=== PATIENT | female | born 1990 | race Caucasian/White ===

== ENCOUNTER 2016-08-07 14:59 | Emergency (ER) | payer BC, MEDICAID, OTHER | END 2016-08-07 16:27 | disposition home or self-care (01) | DX: J03.90 Acute tonsillitis, unspecified (principal); K13.0 Diseases of lips; F17.200 Nicotine dependence, unspecified, uncomplicated ==

== ENCOUNTER 2018-05-05 15:38 | Outpatient (CLI) | payer MEDICAID ==
[2018-05-06 14:37] LABS: MUDS CUTOFF CONCENTRATIONS CUTOFF CONC BELOW:
[2018-05-06 15:52] LABS: AMPHETAMINE SCREEN,URINE NEGATIVE (NEGATIVE); BENZODIAZEPINES SCREEN, URINE NEGATIVE (NEGATIVE); COCAINE SCREEN URINE NEGATIVE (NEGATIVE); METHADONE SCREEN, URINE NEGATIVE (NEGATIVE); METHAMPHETAMINES SCREEN, URINE NEGATIVE (NEGATIVE); OPIATE SCREEN, URINE NEGATIVE (NEGATIVE); OXYCODONE SCREEN, URINE NEGATIVE (NEGATIVE); PROPOXYPHENE SCREEN, URINE NEGATIVE (NEGATIVE); TRICYCLIC ANTIDEPRESSANT,URINE NEGATIVE (NEGATIVE)
== END 2018-05-05 15:39 | disposition home or self-care (01) ==
LOC: LAB.R 15:38
PROVIDERS: ATTEND Nurse Practitioner Obstetrics & Gynecology
DX: Z36.9 Encounter for antenatal screening, unspecified (principal)
CPT/HCPCS: 80306

== ENCOUNTER 2018-05-05 15:45 | Outpatient (CLI) | payer MEDICAID ==
[2018-05-05 16:02] LABS: BASOPHILS # (AUTO) 0.1 10^3/uL (0.0-0.1); BASOPHILS % (AUTO) 0.7 %; EOSINOPHILS # (AUTO) 0.2 10^3/uL (0.0-0.7); HGB - HEMOGLOBIN 13.7 g/dL (12.0-16.0); LYMPHOCYTES # (AUTO) 2.3 10^3/uL (1.5-3.5); LYMPHOCYTES % (AUTO) 12.6 %; MEAN CORPUSCULAR HEMOGLOBIN 31.6 pg (27.0-31.0); MEAN CORPUSCULAR HGB CONC 35.1 g/dL (32.0-36.0); MEAN PLATELET VOLUME 6.9 fL (7.9-10.8); MONOCYTES # (AUTO) 0.8 10^3/uL (0.0-1.0); MONOCYTES % (AUTO) 4.4 %; NEUTROPHILS # (AUTO) 15.1 10^3/uL (1.5-6.6); NEUTROPHILS % (AUTO) 81.3 %; PLT - PLATELET COUNT 421 10^3/uL (130-450); RED BLOOD COUNT 4.33 10^6/uL (4.20-5.40); RED CELL DISTRIBUTION WIDTH 13.3 % (12.0-15.0); WHITE BLOOD COUNT 18.5 x10^3/uL (4.8-10.8)
[2018-05-05 16:31] LABS: HEMOGLOBIN A1C 0.4 g/dL; HEMOGLOBIN A1C % 4.6 % (4.6-6.2)
[2018-05-05 16:40] LABS: BILIRUBIN,URINE NEGATIVE (NEGATIVE); GLUCOSE, URINE (UA) NEGATIVE (NEGATIVE); KETONES,URINE (UA) 15 mg/dL (NEGATIVE); LEUKOCYTE ESTERASE, URINE NEGATIVE (NEGATIVE); NITRITE,URINE NEGATIVE (NEGATIVE); OCCULT BLOOD,URINE NEGATIVE (NEGATIVE); PROTEIN,URINE NEGATIVE (NEGATIVE); UROBILINOGEN,URINE 0.2 (NORMAL) E.U./dL (NORMAL)
[2018-05-05 16:48] LABS: BACTERIA,URINE Rare /HPF (None Seen); CLARITY,URINE CLEAR (CLEAR); RBC,URINE None Seen /HPF (0-5); SQUAMOUS EPITHELIAL CELL,UR MANY Squamous (<= Few)
[2018-05-06 13:01] LABS: HEPATITIS B SURFACE ANTIGEN NON-REACTIVE (NON-REACTIVE); HEPATITIS C ANTIBODY NON-REACTIVE (NON-REACTIVE)
[2018-05-06 14:22] LABS: HIV AG/AB 4TH GEN NON-REACTIVE (NON-REACTIVE)
== END 2018-05-05 15:46 | disposition home or self-care (01) ==
LOC: LAB 15:45
PROVIDERS: ATTEND Nurse Practitioner Obstetrics & Gynecology
DX: Z36.9 Encounter for antenatal screening, unspecified (principal)
CPT/HCPCS: 36415; 80306; 81001; 81599; 83036; 85025; 86592; 86762; 86803; 86850; 86900; 86901; 87340; 87389

== ENCOUNTER 2018-06-03 15:45 | Outpatient (CLI) | payer MEDICAID ==
[2018-06-03 18:52] LABS: MUDS CUTOFF CONCENTRATIONS CUTOFF CONC BELOW:
[2018-06-03 19:41] LABS: AMPHETAMINE SCREEN,URINE NEGATIVE (NEGATIVE); BENZODIAZEPINES SCREEN, URINE NEGATIVE (NEGATIVE); COCAINE SCREEN URINE NEGATIVE (NEGATIVE); METHADONE SCREEN, URINE NEGATIVE (NEGATIVE); METHAMPHETAMINES SCREEN, URINE NEGATIVE (NEGATIVE); OPIATE SCREEN, URINE NEGATIVE (NEGATIVE); OXYCODONE SCREEN, URINE NEGATIVE (NEGATIVE); PROPOXYPHENE SCREEN, URINE NEGATIVE (NEGATIVE); TRICYCLIC ANTIDEPRESSANT,URINE NEGATIVE (NEGATIVE)
== END 2018-06-03 23:59 | disposition home or self-care (01) ==
LOC: LAB.R 15:45
PROVIDERS: ATTEND Registered Nurse
DX: R03.0 Elevated blood-pressure reading, without diagnosis of hypertension (principal)
CPT/HCPCS: 80306

== ENCOUNTER 2018-06-12 11:44 | Outpatient (CLI) | payer MEDICAID ==
[2018-06-12 13:02] LABS: BILIRUBIN,URINE NEGATIVE (NEGATIVE); GLUCOSE, URINE (UA) NEGATIVE (NEGATIVE); KETONES,URINE (UA) NEGATIVE (NEGATIVE); LEUKOCYTE ESTERASE, URINE NEGATIVE (NEGATIVE); NITRITE,URINE NEGATIVE (NEGATIVE); OCCULT BLOOD,URINE NEGATIVE (NEGATIVE); PH,URINE 6.5 PH (5.0-7.5); PROTEIN,URINE NEGATIVE (NEGATIVE); UROBILINOGEN,URINE 0.2 (NORMAL) E.U./dL (NORMAL)
[2018-06-12 13:08] LABS: CLARITY,URINE CLEAR (CLEAR)
[2018-06-12 13:24] LABS: HGB - HEMOGLOBIN 12.2 g/dL (12.0-16.0); MEAN CORPUSCULAR HEMOGLOBIN 31.3 pg (27.0-31.0); MEAN CORPUSCULAR HGB CONC 34.7 g/dL (32.0-36.0); MEAN CORPUSCULAR VOLUME 90.2 fL (81.0-99.0); MEAN PLATELET VOLUME 7.2 fL (7.9-10.8); RED BLOOD COUNT 3.91 10^6/uL (4.20-5.40); RED CELL DISTRIBUTION WIDTH 13.3 % (12.0-15.0)
[2018-06-12 13:40] LABS: CREATININE 0.6 mg/dL (0.4-1.0); URIC ACID 5.1 mg/dL (2.6-7.2)
== END 2018-06-12 11:45 | disposition home or self-care (01) ==
LOC: LAB 11:44
PROVIDERS: ATTEND Registered Nurse
DX: O16.9 Unspecified maternal hypertension, unspecified trimester (principal); O99.210 Obesity complicating pregnancy, unspecified trimester; Z33.1 Pregnant state, incidental
CPT/HCPCS: 36415; 81001; 81003; 81599; 82565; 82677; 82950; 83615; 84163; 84450; 84550; 84702; 85027; 86336; 87086

== ENCOUNTER 2018-07-02 12:56 | Outpatient (CLI) | payer MEDICAID ==
--- NOTE | 2018-07-02 16:15 | Ultrasound Report ---
Reason: Procedure Date: 07/02/2018 Accession Number: [id number] / [id number] Procedure: US - OB Detailed Eval CPT Code: FULL RESULT: EXAM: COMPLETE OBSTETRICAL ULTRASOUND EXAM DATE: 07/02/2018 03:13 PM. CLINICAL HISTORY: anatomic survey. COMPARISON: None. TECHNIQUE: Real-time sonographic evaluation of the fetus performed by the pomologist. Multiple customer response representative static images were saved for review. DATING: Established EGA 21 weeks 1 day with BRIANDA 11/11/2018 based on obstetric provider information. EGA 21 weeks 1 day with BRIANDA 11/11/2018 based on the current ultrasound. GENERAL EVALUATION Mathew . Cardiac activity: 147 bpm. movement: Visualized. Presentation: Cephalic. Placenta: Anterior position. No evidence for previa. Umbilical cord: 3 vessel cord. Central placental cord origin. Amniotic fluid: 14.6 MVP 6.7 cm. BIOMETRY Bi-Parietal Diameter (BPD): 5.1 cm, 21 weeks 2 days Head Circumference (HC): 19.2 cm, 21 weeks 2 days Abdominal Circumference (AC): 16.2 cm, 21 weeks 2 days Femur Length (FL): 3.5 cm, 21 weeks 1 day Estimated Weight: 411 grams, which is around the 50th percentile. ANATOMY The intracranial structures, profile, face/nose/lips, spine, 4 chamber heart and outflow tracts, stomach, abdominal wall and cord insertion, diaphragm, kidneys, bladder, and extremities were visualized and demonstrate no abnormality. MATERNAL STRUCTURES Uterus: Unremarkable. Cervix: Long and closed. Transabdominal length 4.4 cm. Right ovary/adnexa: Unremarkable. Left ovary/adnexa: Unremarkable. Free fluid: None. IMPRESSION: 1. Mathew live intrauterine with gestational age 21 weeks 1 day based on referring provider information. 2. Estimated weight is within expected limits for assigned dating. 3. Normal anatomic survey. No anatomic abnormalities are detected at this time. RADIA
== END 2018-07-02 12:57 | disposition home or self-care (01) ==
LOC: DI 12:56
PROVIDERS: ATTEND Registered Nurse
DX: Z36.89 Encounter for other specified antenatal screening (principal); Z3A.21 21 weeks gestation of pregnancy
CPT/HCPCS: 76811

== ENCOUNTER 2018-08-04 10:49 | Outpatient (CLI) | payer MEDICAID ==
[2018-08-04 11:12] LABS: HGB - HEMOGLOBIN 12.9 g/dL (12.0-16.0); MEAN CORPUSCULAR HEMOGLOBIN 30.4 pg (27.0-31.0); MEAN CORPUSCULAR HGB CONC 33.9 g/dL (32.0-36.0); MEAN CORPUSCULAR VOLUME 89.6 fL (81.0-99.0); MEAN PLATELET VOLUME 7.3 fL (7.9-10.8); RED BLOOD COUNT 4.24 10^6/uL (4.20-5.40); RED CELL DISTRIBUTION WIDTH 13.6 % (12.0-15.0)
== END 2018-08-04 10:50 | disposition home or self-care (01) ==
LOC: LAB 10:49
PROVIDERS: ATTEND Nurse Practitioner Obstetrics & Gynecology
DX: Z36.89 Encounter for other specified antenatal screening (principal); O99.810 Abnormal glucose complicating pregnancy
CPT/HCPCS: 36415; 82951; 82952; 85027; 86850

== ENCOUNTER 2018-08-06 16:12 | Outpatient (CLI) | payer MEDICAID ==
[2018-08-06 14:40] LABS: CREATININE,URINE 86.7 mg/dL
== END 2018-08-06 23:59 | disposition home or self-care (01) ==
LOC: LAB.R 16:12
PROVIDERS: ATTEND Registered Nurse
DX: O99.210 Obesity complicating pregnancy, unspecified trimester (principal); R03.0 Elevated blood-pressure reading, without diagnosis of hypertension
CPT/HCPCS: 82570; 84156

== ENCOUNTER 2018-08-28 09:56 | Outpatient (CLI) | payer MEDICAID | END 2018-08-28 09:57 | disposition home or self-care (01) | LOC: NS 09:56 | PROVIDERS: ATTEND Nurse Practitioner Obstetrics & Gynecology | DX: Z71.3 Dietary counseling and surveillance (principal); O24.410 Gestational diabetes mellitus in pregnancy, diet controlled | CPT/HCPCS: 97802 ==

== ENCOUNTER 2018-09-10 15:59 | Outpatient (CLI) | payer MEDICAID ==
[2018-09-10 16:36] LABS: CREATININE,URINE 106.4 mg/dL; PROTEIN/CREATININE RATIO,URINE 0.1 (<=0.2)
[2018-09-10 16:42] LABS: CREATININE 0.6 mg/dL (0.4-1.0); URIC ACID 5.4 mg/dL (2.6-7.2)
== END 2018-09-10 16:00 | disposition home or self-care (01) ==
LOC: LAB 15:59
PROVIDERS: ATTEND Obstetrics & Gynecology
DX: Z36.89 Encounter for other specified antenatal screening (principal)
CPT/HCPCS: 36415; 82565; 82570; 83615; 84156; 84450; 84550

== ENCOUNTER 2018-09-15 16:18 | Observation (INO) | payer MEDICAID ==
[2018-09-15 17:10] LABS: BASOPHILS # (AUTO) 0.1 10^3/uL (0.0-0.1); BASOPHILS % (AUTO) 0.6 %; EOSINOPHILS # (AUTO) 0.2 10^3/uL (0.0-0.7); EOSINOPHILS % (AUTO) 1.1 %; HGB - HEMOGLOBIN 13.2 g/dL (12.0-16.0); LYMPHOCYTES # (AUTO) 1.7 10^3/uL (1.5-3.5); LYMPHOCYTES % (AUTO) 11.5 %; MEAN CORPUSCULAR HEMOGLOBIN 29.9 pg (27.0-31.0); MEAN CORPUSCULAR HGB CONC 33.3 g/dL (32.0-36.0); MEAN CORPUSCULAR VOLUME 89.9 fL (81.0-99.0); MEAN PLATELET VOLUME 7.4 fL (7.9-10.8); MONOCYTES # (AUTO) 0.8 10^3/uL (0.0-1.0); MONOCYTES % (AUTO) 5.7 %; NEUTROPHILS % (AUTO) 81.1 %; PLT - PLATELET COUNT 337 10^3/uL (130-450); RED BLOOD COUNT 4.43 10^6/uL (4.20-5.40); RED CELL DISTRIBUTION WIDTH 14.3 % (12.0-15.0); WHITE BLOOD COUNT 14.8 x10^3/uL (4.8-10.8)
[2018-09-15] MEDS ORDERED: LABETALOL 100 MG TABLET PO ONE (17:20)
[2018-09-15 17:26] LABS: URIC ACID 5.7 mg/dL (2.6-7.2)
[2018-09-15 18:12] LABS: CREATININE,URINE 93.7 mg/dL; PROTEIN/CREATININE RATIO,URINE 0.2 (<=0.2)
[2018-09-15 18:26] LABS: CALCIUM 9.1 mg/dL (8.5-10.3); CREATININE 0.7 mg/dL (0.4-1.0)
[2018-09-15] MEDS ORDERED: BETAMETHASONE 30 MG/5 ML VIAL IM SCH (20:46)
[2018-09-15] MEDS: LABETALOL 100 MG TABLET PO SCH (21:38)
[2018-09-16] MEDS: LABETALOL 100 MG TABLET PO SCH ×3 (03:07→14:51)
[2018-09-16 07:24] LABS: BASOPHILS % (AUTO) 0.3 %; HGB - HEMOGLOBIN 13.5 g/dL (12.0-16.0); LYMPHOCYTES % (AUTO) 6.5 %; MEAN CORPUSCULAR HEMOGLOBIN 30.8 pg (27.0-31.0); MEAN CORPUSCULAR HGB CONC 34.2 g/dL (32.0-36.0); MEAN CORPUSCULAR VOLUME 90.1 fL (81.0-99.0); MEAN PLATELET VOLUME 7.6 fL (7.9-10.8); MONOCYTES # (AUTO) 0.3 10^3/uL (0.0-1.0); MONOCYTES % (AUTO) 1.6 %; NEUTROPHILS # (AUTO) 14.3 10^3/uL (1.5-6.6); NEUTROPHILS % (AUTO) 91.6 %; PLT - PLATELET COUNT 347 10^3/uL (130-450); RED BLOOD COUNT 4.38 10^6/uL (4.20-5.40); RED CELL DISTRIBUTION WIDTH 14.4 % (12.0-15.0); WHITE BLOOD COUNT 15.6 x10^3/uL (4.8-10.8)
[2018-09-16 07:33] LABS: ALBUMIN 3.2 g/dL (3.2-5.5); ALBUMIN/GLOBULIN RATIO 0.9 (1.0-2.2); BILIRUBIN,TOTAL 0.9 mg/dL (0.2-1.0); CALCIUM 9.5 mg/dL (8.5-10.3); CREATININE 0.6 mg/dL (0.4-1.0); TOTAL PROTEIN 6.9 g/dL (6.7-8.2); URIC ACID 5.9 mg/dL (2.6-7.2)
[2018-09-16 08:36] LABS: PROTEIN/CREATININE RATIO,URINE 0.2 (<=0.2)
[2018-09-16 15:30] VITALS: BP 141/76
--- NOTE | 2018-09-16 19:36 | Ultrasound Report ---
Reason: HTN Procedure Date: 09/16/2018 Accession Number: [id number] / [id number] Procedure: US - OB F/U or Repeat CPT Code: FULL RESULT: EXAM: FOLLOW-UP OBSTETRICAL ULTRASOUND EXAM DATE: 09/16/2018 04:48 PM. CLINICAL HISTORY: HTN. COMPARISON: None. TECHNIQUE: Real-time sonographic evaluation of the fetus performed by the linux admin engineer. Multiple human resources representative static images were saved for review. DATING: Established EGA 32 weeks 0 days with BRIANDA 11/11/2018 based on established dates. EGA 32 weeks 1 day with BRIANDA 11/10/2018 based on the current ultrasound. GENERAL EVALUATION Mathew . Cardiac activity: 148 bpm. movement: Visualized. Presentation: Cephalic. Placenta: Anterior position. No previa or abruption. Amniotic fluid: Normal. AVINASH 14.2 cm. MVP 4.8 cm. BIOMETRY Bi-Parietal Diameter (BPD): 8.1 cm, 32 weeks 3 days Head Circumference (HC): 29.9 cm, 33 weeks 1 day Abdominal Circumference (AC): 27.7 cm, 31 weeks 5 days Femur Length (FL): 6.0 cm, 31 weeks 3 days Estimated Weight: 1846 g, 34th percentile. S/D ratio: 3.64-4.04 IMPRESSION: 1. Mathew live intrauterine with gestational age 32 weeks 0 days based on established dates. 2. Estimated weight is within expected limits for assigned dating. HAKEEM
--- NOTE | 2018-09-18 11:32 | PREOP HISTORY & PHYSICAL ---
DATE OF SERVICE: 09/15/2018 Physician: Travon Bolden MD PATIENT IDENTIFICATION: Patient is a 27-year-old G3, P0, AB 2 female who is 31.6 weeks. CHIEF COMPLAINT: Hypertension. HISTORY OF PRESENT ILLNESS: Patient was seen in the clinic today. Her blood pressure is 162/110. She denies a headache, visual change, or any spots in front of her eyes. She has been doing home blood pressure monitoring and, for the most part, they run in the 120s-140s over 70s-100s. She does have a very strong history of preeclampsia in both her mother and her sister. She has recently had PIH labs, which showed a protein:creatinine ratio of 0.1; uric acid was 5.4. She has also had difficulty with gestational diabetes, which is currently diet controlled. Her fasting blood sugars have been running in the 90s range, as well as her 2-hour postprandials for the most part, have been staying less than 120. PAST MEDICAL HISTORY: Denies any hypertensive, diabetes, cardiac, or pulmonary disease. PAST SURGICAL HISTORY: Positive for wisdom teeth. ALLERGIES: NONE KNOWN. CURRENT MEDICATIONS: vitamins. HABITS: Patient has a history of being a former smoker, but does not smoke at this time, but is exposed to cigarette smoke at home. PHYSICAL EXAMINATION GENERAL: Well-developed, well-nourished white female. VITAL SIGNS: Blood pressure as previously mentioned. HEENT: Pupils are equal and round. Extraocular muscles are intact. CARDIOVASCULAR: Regular rate and rhythm. LUNGS: Lung pena are clear without rales or wheezes. ABDOMEN: Soft, nontender, 33 cm fundal height at this time. EXTREMITIES: DTRs are +1 to 2. There is no evidence of any clonus or swelling. IMPRESSION 1. Gestation at 31.6 weeks. 2. Gestational hypertension. 3. Gestational diabetes. PLAN: At this point, we will administer labetalol; will start this at 100 mg p.o. b.i.d. We will also obtain PIH labs checking for deterioration or proteinuria. We will also contact a perinatologist about possible referral or further therapies. We will continue with her antidiabetic diet and have her continue with her blood sugars. TD: 09/18/2018 11:13 SABA
== END 2018-09-16 17:30 | disposition home or self-care (01) ==
LOC: WFO 16:18 → FBP 16:28 → WFO 22:57
PROVIDERS: ADMIT Obstetrics & Gynecology; ATTEND Obstetrics & Gynecology
DX: O13.3 Gestational [pregnancy-induced] hypertension without significant proteinuria, third trimester (principal); O24.410 Gestational diabetes mellitus in pregnancy, diet controlled; Z3A.31 31 weeks gestation of pregnancy; Z87.891 Personal history of nicotine dependence
CPT/HCPCS: 36415; 59025; 76816; 80048; 80053; 82570; 83615; 84156; 84450; 84550; 85025; 85384; 96372; 99214; A9270; G0378

== ENCOUNTER 2018-09-16 21:30 | Outpatient (CLI) | payer MEDICAID ==
[2018-09-16] MEDS ORDERED: BETAMETHASONE 30 MG/5 ML VIAL IM ONE (21:38)
[2018-09-16] MEDS ORDERED: BETAMETHASONE 30 MG/5 ML VIAL ONE (21:46)
== END 2018-09-16 21:47 | disposition home or self-care (01) ==
LOC: WFO 21:30 → FBP 21:37 → WFO 21:47
PROVIDERS: ATTEND Obstetrics & Gynecology
DX: Z53.9 Procedure and treatment not carried out, unspecified reason (principal)
CPT/HCPCS: 96372

== ENCOUNTER 2018-09-19 08:00 | Outpatient (CLI) | payer MEDICAID ==
[2018-09-19 14:59] LABS: TOTAL PROTEIN 24HR,URINE 225 mg/24hr (40-150); TOTAL PROTEIN,URINE TIMED 9 mg/dL; TOTAL VOLUME 24HRS,URINE 2500 mL
== END 2018-09-19 08:01 | disposition home or self-care (01) ==
LOC: LAB.R 08:00
PROVIDERS: ATTEND Obstetrics & Gynecology
DX: Z36.89 Encounter for other specified antenatal screening (principal)
CPT/HCPCS: 84156

== ENCOUNTER 2018-09-19 14:23 | Outpatient (CLI) | payer MEDICAID ==
[2018-09-19 15:17] VITALS: BP 145/94
--- NOTE | 2018-09-19 16:59 | PROVIDER PROGRESS NOTE ---
Subjective - Prog Note Date Prog Note Date: 09/19/18 (OUTPATIENT NST - CHTN) Prog Note Time: 16:54 - Subjective Subjective: Patient comes in today for NST/Serial BPs/24 h urine. CHTN recently started several days ago on labetolol. RNST today, no contractions. Patient admits to white coat HTN, bps sl. elevated here (see VS), virtually all normal at home. 24 hour urine protein today 225 mg. Patient without h/a or visual changes. Has appt. in [address] Bolden as well as next NST appt. Preeclamptic precautions given. F/U in 3 days as scheduled, sooner prn. Objective - Vital Signs/Intake & Output Vital Signs: Vital Signs x48h Pulse Resp BP Pulse Ox 09/19/18 15:10 87 18 145/94 H 99 09/19/18 14:54 87 20 149/100 H 99 - Lab Results Other Labs: Lab Results x24hrs 09/19/18 Range/Units 06:30 Ur 24 Hour Volume 2500 mL Ur Total Protein 24 Hr 225 H (40-150) mg/24hr Ur Total Protein Timed 9 mg/dL
== END 2018-09-19 15:40 | disposition home or self-care (01) ==
LOC: WFO 14:23 → FBP 14:43 → WFO 15:40
PROVIDERS: ATTEND Obstetrics & Gynecology
DX: O13.3 Gestational [pregnancy-induced] hypertension without significant proteinuria, third trimester (principal); Z3A.32 32 weeks gestation of pregnancy
CPT/HCPCS: 59025; 84156

== ENCOUNTER 2018-09-22 14:36 | Outpatient (CLI) | payer MEDICAID ==
[2018-09-22 15:20] VITALS: BP 148/101
== END 2018-09-22 15:20 | disposition home or self-care (01) ==
LOC: WFO 14:36 → FBP 14:41 → WFO 15:20
PROVIDERS: ATTEND Obstetrics & Gynecology
DX: O13.3 Gestational [pregnancy-induced] hypertension without significant proteinuria, third trimester (principal); Z3A.32 32 weeks gestation of pregnancy
CPT/HCPCS: 59025

== ENCOUNTER 2018-09-25 14:14 | Outpatient (CLI) | payer MEDICAID ==
[2018-09-25] MEDS ORDERED: LABETALOL 100 MG TABLET PO ONE (15:00)
[2018-09-25 15:26] LABS: BASOPHILS # (AUTO) 0.1 10^3/uL (0.0-0.1); BASOPHILS % (AUTO) 0.5 %; EOSINOPHILS # (AUTO) 0.3 10^3/uL (0.0-0.7); EOSINOPHILS % (AUTO) 2.3 %; HGB - HEMOGLOBIN 13.1 g/dL (12.0-16.0); LYMPHOCYTES # (AUTO) 1.8 10^3/uL (1.5-3.5); LYMPHOCYTES % (AUTO) 13.2 %; MEAN CORPUSCULAR HEMOGLOBIN 30.8 pg (27.0-31.0); MEAN CORPUSCULAR HGB CONC 34.4 g/dL (32.0-36.0); MEAN CORPUSCULAR VOLUME 89.7 fL (81.0-99.0); MEAN PLATELET VOLUME 7.6 fL (7.9-10.8); MONOCYTES # (AUTO) 0.9 10^3/uL (0.0-1.0); MONOCYTES % (AUTO) 6.8 %; NEUTROPHILS # (AUTO) 10.3 10^3/uL (1.5-6.6); NEUTROPHILS % (AUTO) 77.2 %; PLT - PLATELET COUNT 296 10^3/uL (130-450); RED BLOOD COUNT 4.24 10^6/uL (4.20-5.40); RED CELL DISTRIBUTION WIDTH 13.9 % (12.0-15.0); WHITE BLOOD COUNT 13.3 x10^3/uL (4.8-10.8)
[2018-09-25 15:35] LABS: ALBUMIN 2.8 g/dL (3.2-5.5); ALBUMIN/GLOBULIN RATIO 0.9 (1.0-2.2); BILIRUBIN,TOTAL 0.3 mg/dL (0.2-1.0); CALCIUM 10.5 mg/dL (8.5-10.3); CREATININE 0.7 mg/dL (0.4-1.0)
[2018-09-25 15:49] LABS: CREATININE,URINE 107.2 mg/dL; PROTEIN/CREATININE RATIO,URINE 0.2 (<=0.2)
[2018-09-25] MEDS ORDERED: SODIUM CHLORIDE FLUSH 0.9% 10 ML SYRINGE ONE ×2 (17:18→20:29)
[2018-09-25] MEDS ORDERED: LACTATED RINGERS 1,000 ML IV ONE (17:19)
[2018-09-25] MEDS ORDERED: LABETALOL 20 MG/4 ML SYRINGE IVP ONE ×2 (17:53→20:21)
[2018-09-25] MEDS ORDERED: LACTATED RINGERS 1,000 ML IV SCH (18:00)
[2018-09-25] MEDS ORDERED: MAGNESIUM SULFATE 2 GRAM 2 GM/50 ML BAG IV SCH (19:00)
[2018-09-25] MEDS: MAGNESIUM SULFATE 2 GRAM 2 GM/50 ML BAG IV SCH ×2 (19:11→19:22)
[2018-09-25] MEDS ORDERED: MAGNESIUM SULFATE IN WATER 20 GM/500 ML IV.SOLN IV SCH (19:40)
--- NOTE | 2018-09-25 20:33 | PREOP HISTORY & PHYSICAL ---
DATE OF SERVICE: 09/25/2018 Physician: Travon Bolden MD PATIENT IDENTIFICATION: The patient is a 27-year-old G3, P0, AB2 female whose EDC is 11/15/2018, making her 33.3 weeks. This is determined by a 7.6 week ultrasound. CHIEF COMPLAINT: Gestational hypertension. HISTORY OF PRESENT ILLNESS: Patient presented today for followup on gestational hypertension. She is currently taking 100 mg of labetalol 4 times a day. Her blood pressures at home have been running in the 119s-140s range systolic and her diastolics have been running in the 70s-80s range at home. She presentation here, initial blood pressure was 161/113. This was followed at 159/109. Because of this, her oral labetalol was repeated early. She had previously had labetalol at 2 o'clock in the afternoon, repeated this at roughly 3:00. Subsequent blood pressure was 174/117. For this reason, an IV was started and labetalol IV was ordered. Prior to administering, her pressures had come back down to 151/90. She was administered 10 mg labetalol IV. Her OB care started with us at 17 weeks' gestational age. Her has been complicated with chronic hypertension. She has been followed on a regular basis in the office. She has been doing home blood pressure monitoring. About 09/16/2018, she was noted to have continued hypertension. She was monitored in Labor and Delivery overnight and started on oral labetalol. She has been doing twice weekly NSTs as well as ultrasounds for growth. Her most recent ultrasound on 09/16/2018 showed an infant, which was on the 34th percentile. She has had continued PIH labs. The platelets have been normal. The AST, ALT have also been normal. She has had a 24-hour total protein excretion on 09/19/2018, which was 225. This correlated with her protein creatinine ratio at the same time of 0.2 mg. She had a protein creatinine ratio done today, which was also 0.2 mg. PAST MEDICAL HISTORY: Positive for hypertension. PAST SURGICAL HISTORY: None. ALLERGIES: NONE KNOWN. CURRENT MEDICATIONS 1. Labetalol 100 mg p.o. q.6 hours. 2. vitamins. HABITS: The patient denies use of alcohol, tobacco, street or addictive drugs. SOCIAL HISTORY: The patient is at this time. FAMILY HISTORY: Positive for mother with preeclampsia, sister with preeclampsia; however, she had twins. PHYSICAL EXAMINATION VITAL SIGNS: Blood pressures as previously noted, most recent was 151/90 without medications. HEENT: Pupils are equal and round. Extraocular muscles are intact. CARDIOVASCULAR: Regular rate and rhythm, distant. PULMONARY: Lung pena are clear. ABDOMEN: Gravid. It is nontender. EXTREMITIES: DTRs are +1. There is no evidence of any clonus. IMPRESSION 1. A 27-year-old G3, P0, AB2 female, 33.3 weeks. 2. Gestational hypertension, poorly controlled with elevations when seen in the office. 3. Gestational diabetes, good control with diet. Her fastings have been running in the 90s-100s and her 2-hour postprandials have been running sub-120s. Upon discussion with Dr. Sue Huang at [facility], it was decided to transfer in via ambulance. We will administer magnesium sulfate 4 g load with 2 g an hour. The patient has already received betamethasone on about the 09/16/2018. [facility]: [facility]2018 [facility]
[2018-09-25] MEDS ORDERED: LABETALOL 20 MG/4 ML SYRINGE IVP SCH (20:52)
[2018-09-25 21:12] VITALS: BP 147/95
== END 2018-09-25 20:45 | disposition short-term general hospital (02) ==
LOC: WFO 14:14 → FBP 14:17 → WFO 20:45
PROVIDERS: ATTEND Obstetrics & Gynecology
DX: O13.3 Gestational [pregnancy-induced] hypertension without significant proteinuria, third trimester (principal); O24.410 Gestational diabetes mellitus in pregnancy, diet controlled; Z3A.33 33 weeks gestation of pregnancy; Z79.899 Other long term (current) drug therapy
CPT/HCPCS: 36415; 80053; 82570; 84156; 85025; 96365; 96375; 96376; 99213; A9270; J7120

== ENCOUNTER 2018-09-25 20:50 | Outpatient (CLI) | payer MEDICAID | END 2018-09-25 20:51 | disposition short-term general hospital (02) | LOC: EMS 20:50 | PROVIDERS: ATTEND Surgery | DX: O13.3 Gestational [pregnancy-induced] hypertension without significant proteinuria, third trimester (principal) | CPT/HCPCS: A0425; A0426 ==